=== PATIENT | female | born 1990 | race Caucasian/White ===

== ENCOUNTER 2023-09-28 16:15 | Observation (INO) | payer OTHER ==
[2023-09-28] MEDS ORDERED: Trandate 100 MG PO SCH (17:35)
[2023-09-28] MEDS ORDERED: Trandate 100 MG ONE (17:45)
[2023-09-28] MEDS: Trandate 100 MG PO STA (17:47)
[2023-09-28 17:57] LABS: Absolute Neutrophil Ct (ANC) 4.86 x10^3/uL (1.4-6.9); BASOPHIL % 0.4 % (0.0-0.4); Basophil (Absolute #) 0.03 x10^3/uL (0-0.4); Eosinophil % 1.5 % (0.00-5.0); Eosinophil (Absolute #) 0.12 x10^3/uL (0-0.5); Hematocrit 34.9 % (35-47); Hemoglobin 11.5 g/dL (12.0-16.0); IMMATURE GRAN # 0.04 x10^3u/L (0.00-0.03); IMMATURE GRAN % 0.5 % (0.00-0.4); Lymphocyte (Absolute #) 2.56 x10^3/uL (1.0-4.6); Mean Cell Volume 86.2 fL (78-100); Mean Corpuscular Hemoglobin 28.4 pg (26-32); Mean Platelet Volume 11.9 fL (7.5-11.0); Monocyte (Absolute #) 0.64 x10^3/uL (0.0-1.3); Monocytes % 7.8 % (0.0-12.0); Neutrophil % 58.8 % (36.0-66.0); Platelet Count 204 x10^3/uL (150-450); Red Blood Count 4.05 x10^6/uL (4.1-5.4); Red Cell Distribution Width 14.4 % (11.5-14.0); White Blood Count 8.3 x10^3/uL (4.0-10.5)
[2023-09-28 18:03] LABS: ALBUMIN 3.6 g/dL (3.5-5.0); ANION GAP 13.1 MEQ/L (5-15); BILIRUBIN,TOTAL 0.4 mg/dL (0.2-1.3); Calcium 9.5 mg/dL (8.4-10.2); Creatinine 1 0.6 mg/dL (0.52-1.04); EST GLOMERULAR FILTRATION RATE 122.2 ML/MIN; Potassium 3.9 mmol/L (3.5-5.1); Total Protein 7.3 g/dL (6.3-8.2); Uric Acid 6.2 mg/dL (2.6-6.0)
[2023-09-28 18:16] LABS: Creatinine, Urine Random 203.4 mg/dl; Protein Creatinine Ratio, Ran. 0.53 mg/mg (0.0-0.15)
[2023-09-28] MEDS: APRESOLINE 20 MG/ML INJ IV ONE (20:00)
[2023-09-28 20:11] VITALS: RESP 16; TEMP 98.3; O2SAT 100
[2023-09-28 20:13] VITALS: PULSE 79
[2023-09-28 20:25] VITALS: BP 168/91
== END 2023-09-28 20:30 | disposition home or self-care (01) ==
LOC: OB.NST 16:15 → EDSTATUS 18:13 → MED SURG 18:14
PROVIDERS: ADMIT Family Medicine; ATTEND Family Medicine
DX: O16.3 Unspecified maternal hypertension, third trimester (principal); Z3A.32 32 weeks gestation of pregnancy
CPT/HCPCS: 36415; 59025; 80053; 82570; 84156; 84550; 85025; 99213; G0378; G0379; J0360; A9270-GY